=== PATIENT | male | born 1945 | race Caucasian/White ===

== ENCOUNTER 2021-08-23 09:58 | Observation (INO) ==
[2021-08-23] MEDS ORDERED: CeFAZolin Syr 2,000MG/20 ML 2,000 MG/20 ML SYRINGE IVPB ONE (10:23)
[2021-08-23] MEDS ORDERED: Ringers Solution, Lactated 1,000 ML IVC SCH ×3 (10:30→21:00)
[2021-08-23] MEDS ORDERED: *HR* OxyCODONE Immed Rel 5 MG TABLET PO PRN ×2 (10:42→15:12)
[2021-08-23] MEDS ORDERED: *HR* FentaNYL (PF) 100 MCG/2 ML VIAL IVP PRN (10:42)
[2021-08-23] MEDS ORDERED: Famotidine 20 MG/2 ML VIAL IVP ONE (10:42)
[2021-08-23] MEDS ORDERED: Ondansetron 4 MG/2 ML VIAL IVP PRN ×2 (10:43→14:59)
[2021-08-23] MEDS ORDERED: *HR* FentaNYL (PF) 100 MCG/2 ML VIAL ONE (11:15)
[2021-08-23] MEDS ORDERED: *HR* Propofol 200 MG/20 ML VIAL IVP ONE (11:15)
[2021-08-23] MEDS ORDERED: [UNRECOGNIZED DRUG - OTHER] INTRAART ONE (11:50)
[2021-08-23] MEDS ORDERED: EPINEPHRINE INTRAART ONE (11:50)
[2021-08-23] MEDS ORDERED: KETOROLAC INTRAART ONE (11:50)
[2021-08-23] MEDS ORDERED: ROPIVACAINE INTRAART ONE (11:50)
[2021-08-23] MEDS ORDERED: *HR* Midazolam HCl 2 MG/2 ML VIAL ONE (12:01)
[2021-08-23] MEDS ORDERED: Vancomycin 1,000 MG VIAL ONE (12:23)
[2021-08-23] MEDS ORDERED: *HR* Phenylephrine 10 MG/ML VIAL ONE ×2 (13:11→14:18)
[2021-08-23] MEDS ORDERED: Ondansetron 4 MG/2 ML VIAL ONE (14:17)
[2021-08-23] MEDS ORDERED: Lidocaine -MPF 2% 5 ML VIAL ONE (14:17)
[2021-08-23] MEDS ORDERED: Tranexamic Acid 1,000 MG/10 ML VIAL ONE ×2 (14:18→15:28)
[2021-08-23] MEDS ORDERED: Sennosides 8.6 MG TABLET PO PRN (14:59)
[2021-08-23] MEDS ORDERED: *HR* Promethazine 25 MG/ML VIAL IM PRN (14:59)
[2021-08-23] MEDS ORDERED: Naloxone 0.4 MG/ML INJ IVP PRN ×2 (14:59→15:12)
[2021-08-23] MEDS ORDERED: MOM Conc 10 ML UD.LIQ PO PRN (14:59)
[2021-08-23] MEDS ORDERED: HYDROcodone BIT/Homatropine 5 MG TABLET PO PRN (15:12)
[2021-08-23] MEDS: Ketorolac 15 MG/ML VIAL IVP SCH (18:37)
[2021-08-23] MEDS: Ascorbic Acid 500 MG TABLET PO SCH (18:37)
[2021-08-23] MEDS: CeFAZolin 2 GM/120 ML BAG IVPB SCH (18:37)
[2021-08-23] MEDS: Aspirin Enteric Coated 81 MG Tablet PO SCH (20:04)
[2021-08-23] MEDS ORDERED: Ringers Solution, Lactated 500 ML IVC SCH (20:30)
[2021-08-24] MEDS: Ketorolac 15 MG/ML VIAL IVP SCH ×3 (00:09→11:50)
[2021-08-24] MEDS: CeFAZolin 2 GM/120 ML BAG IVPB SCH (02:10)
[2021-08-24 05:18] LABS: Basophils % 0.1 %; Eosinophils % 0.1 %; Hematocrit 35.9 % (37.5-50.1); Hemoglobin 12.7 g/dL (12.9-16.9); Immature Granulocytes % 0.4 % (0-4); Lymphocytes # 0.9 K/mcL (0.6-4.6); Lymphocytes % 6.9 %; Mean Corpuscular HGB Conc 35.4 g/dL (31.6-35.5); Mean Corpuscular Hemoglobin 31.5 pg (28.0-33.3); Mean Corpuscular Volume 89.1 fL (83.0-100.0); Mean Platelet Volume 9.1 fL (9.4-12.4); Monocytes % 7.5 %; Platelet Count 230 K/mcL (140-400); Red Blood Count 4.03 M/mcL (4.19-5.50); White Blood Count 12.9 K/mcL (4.3-11.1)
[2021-08-24 05:36] LABS: BUN/Creatinine Ratio 19 (6-26); Blood Urea Nitrogen 20 mg/dL (8-23); Calcium 8.5 mg/dL (8.6-10.3); Carbon Dioxide 24 mEq/L (23-29); Chloride 101 mEq/L (98-107); Glucose 143 mg/dL (70-105); Osmolality,Calculated 277 (280-300); Potassium 4.2 mEq/L (3.5-5.1); Sodium 131 mEq/L (136-145); eGFR For African Americans > 60 (> 60); eGFR For Non-African Americans > 60 (> 60)
[2021-08-24] MEDS ORDERED: *HR* Enoxaparin 40 MG/0.4 ML SYRINGE SQ SCH (06:00)
[2021-08-24 07:14] VITALS: TEMP 97.4; O2SAT 95
[2021-08-24] MEDS: Aspirin Enteric Coated 81 MG Tablet PO SCH (07:38)
[2021-08-24] MEDS: Ascorbic Acid 500 MG TABLET PO SCH (07:39)
[2021-08-24] MEDS ORDERED: Multivit/Ca/Min/Fe/FA 1 TAB TABLET PO SCH (09:00)
[2021-08-24] MEDS ORDERED: amLODIPine 5 MG TABLET PO SCH (09:00)
[2021-08-24 10:28] VITALS: BP 138/69; PULSE 85
== END 2021-08-24 13:41 | disposition home health service (06) ==
LOC: SDCAOSI 09:58 → 4WAOSI 09:58
PROVIDERS: ADMIT Orthopaedic Surgery; ATTEND Orthopaedic Surgery